=== PATIENT | male | born 1965 | race Caucasian/White ===

== ENCOUNTER → 2017-04-02 | Outpatient (CLI) | payer MEDICARE ==
[~2017-04-02] MED LIST: BACL20TA PO; DIAZ10TA4 PO; HYDR-3144 PO; HYDR25TA6 PO; LISI-170 PO; MORP60TA PO; OXYC20TA2 PO; OXYC30TA PO
== END | disposition home or self-care (01) ==
LOC: RAD 08:17
PROVIDERS: ATTEND Neurological Surgery
DX: M46.1 Sacroiliitis, not elsewhere classified (principal); Z98.1 Arthrodesis status; M41.9 Scoliosis, unspecified
CPT/HCPCS: 72082

== ENCOUNTER → 2017-04-04 | Outpatient (CLI) | payer MEDICARE | END | disposition home or self-care (01) | LOC: CARD 14:04 | PROVIDERS: ATTEND Neurological Surgery | DX: Z01.818 Encounter for other preprocedural examination (principal); R94.31 Abnormal electrocardiogram [ECG] [EKG]; J98.9 Respiratory disorder, unspecified | CPT/HCPCS: 94010; 94726; 94729 ==

== ENCOUNTER → 2017-04-08 | Outpatient (CLI) | payer MEDICARE | LOC: RAD 10:13 | PROVIDERS: ATTEND Neurological Surgery | DX: Z02.9 Encounter for administrative examinations, unspecified (principal) ==

== ENCOUNTER 2017-08-12 14:51 | Emergency (ER) | payer MEDICARE ==
[~2017-08-12] VITALS: Ht 182.9 cm; Wt 85.8 kg
[~2017-08-12 14:51] MED LIST changes: -HYDR-3144 PO; +HYDR-3245 PO
[2017-08-12] MEDS ORDERED: SODIUM CHLORIDE 0.9% 1,000 ML IV ONE (15:04)
[2017-08-12 15:23] LABS: HEMATOCRIT 38.1 % (39.2-51.8); HEMOGLOBIN 12.5 g/dL (13.7-18.0)
[2017-08-12] MEDS ORDERED: ONDANSETRON 2MG/ML, 2ML IVPush ONE (15:30)
[2017-08-12] MEDS ORDERED: SODIUM CHLORIDE 0.9% 1,000ML IVBOLUS ONE (15:30)
[2017-08-12 15:33] LABS: ASPARTATE AMINO TRANSFERASE 14 U/L (15-37); BLOOD UREA NITROGEN 10 mg/dL (7-18)
[2017-08-12] MEDS: MORPHINE SULFATE 4 MG/ML, 1ML IVPush PRN ×2 (16:30→17:36)
[2017-08-12] MEDS ORDERED: OMNIPAQUE 350 MG/ML, 100ML BOTTLE ONE (17:15)
[2017-08-12 18:48] VITALS: BP 124/76
== END 2017-08-12 18:50 | disposition home or self-care (01) ==
LOC: ED 16:02
DX: R10.31 Right lower quadrant pain (principal); I10 Essential (primary) hypertension
CPT/HCPCS: 36415; 74020; 74177; 80053; 81003; 83690; 85025; 96361; 96374; 96375; 96376; 99285; J2405; J7030; Q9967

== ENCOUNTER → 2017-10-14 | Outpatient (CLI) | payer MEDICARE | END | disposition home or self-care (01) | LOC: RAD 13:07 | PROVIDERS: ATTEND Neurological Surgery | DX: M41.9 Scoliosis, unspecified (principal) | CPT/HCPCS: 72082 ==

== ENCOUNTER → 2017-12-02 | Outpatient (CLI) | payer MEDICARE | END | disposition home or self-care (01) | LOC: RAD 15:42 | PROVIDERS: ATTEND Neurological Surgery | DX: M41.84 Other forms of scoliosis, thoracic region (principal) | CPT/HCPCS: 72082 ==

== ENCOUNTER 2018-05-11 21:00 | Emergency (ER) | payer MEDICARE ==
[~2018-05-11] VITALS: Ht 182.9 cm; Wt 90.0 kg
[2018-05-11] MEDS ORDERED: HYDROmorphone 2 MG/ML, 1ML ONE (21:39)
[2018-05-11] MEDS ORDERED: HYDROmorphone 1 MG/ML, 1ML IM ONE ×2 (22:00→22:30)
[2018-05-11] MEDS ORDERED: PLEASE ENTER ALLERGIES MC SCH (22:30)
[2018-05-11 22:38] VITALS: BP 128/74
== END 2018-05-11 22:48 | disposition home or self-care (01) ==
LOC: ED 21:32
DX: S90.32XA Contusion of left foot, initial encounter (principal); G89.11 Acute pain due to trauma; M54.6 Pain in thoracic spine; M54.5 Low back pain; I10 Essential (primary) hypertension; Z79.899 Other long term (current) drug therapy; W13.8XXA Fall from, out of or through other building or structure, initial encounter; Y93.89 Activity, other specified; Y99.8 Other external cause status; Y92.410 Unspecified street and highway as the place of occurrence of the external cause
CPT/HCPCS: 29515; 72080; 73630; 96372; 99284; J1170

== ENCOUNTER → 2018-10-07 | Outpatient (CLI) | payer MEDICARE | END | disposition home or self-care (01) | LOC: RAD 13:14 | PROVIDERS: ATTEND Neurological Surgery | DX: M43.28 Fusion of spine, sacral and sacrococcygeal region (principal); M43.23 Fusion of spine, cervicothoracic region; M41.86 Other forms of scoliosis, lumbar region; M41.84 Other forms of scoliosis, thoracic region | CPT/HCPCS: 72082 ==

== ENCOUNTER → 2018-10-08 | Outpatient (CLI) | payer MEDICARE | END | disposition home or self-care (01) | LOC: RAD 10:04 | PROVIDERS: ATTEND Neurological Surgery | DX: M47.892 Other spondylosis, cervical region (principal); M51.34 Other intervertebral disc degeneration, thoracic region; M51.24 Other intervertebral disc displacement, thoracic region; M43.24 Fusion of spine, thoracic region | CPT/HCPCS: 72141; 72146; 72148 ==

== ENCOUNTER 2018-10-30 21:44 | Emergency (ER) | payer MEDICARE ==
[~2018-10-30] VITALS: Ht 182.9 cm; Wt 95.0 kg
--- NOTE | 2018-10-30 21:53 | NUR ---
Provider to bedside for pt eval upon arrival. Pt comes to ED with main c/o severe back pain. Per EMS pt not taking pain meds and stated to them he thinks he tweeked his back today playing with the dog. Pt reports worse back pain the past few days, from neck to tailbone. Pt reports chronic back pain with multiple back surgeries, pt reports losing bowel and bladder occationally the past few days. Pt states "this happens when the nerve is pinched in my spine." pt also reports chest heaviness and SOB with this heaviness, denies radiating pain. Pt reports has had similar feeling as pt smokes cigarettes. Pt states he was not able to walk a few years ago but with PT he has regained the ability to walk, pt states he has unsteady gait at times r/t "my knees give out on me." pt states last fall last week, denies hitting his head. pt denies being on blood thinners. Pt appears anxious r/t pain to back but able to sit himself up in bed to change into gown. Pt a/ox4, breathing slightly labored, occational wet cough. O2 sat WNL. Pt conversing well, speaking in full sentences without difficulty. Pt able to move all extremities. Pt placed on cardiac and VS monitoring. Pt resting in bed, call light in reach.
[2018-10-30] MEDS ORDERED: SODIUM CHLORIDE FLUSH 10ML SYR IVF ONE (22:00)
--- NOTE | 2018-10-30 22:03 | NUR ---
EKG in progress.
[2018-10-30 22:09] LABS: BASOPHILS # (AUTO) 0.12 x10^3/uL (0-0.1); BASOPHILS % (AUTO) 1 % (0-1); EOSINOPHILS # (AUTO) 0.29 x10^3/uL (0-0.4); EOSINOPHILS % (AUTO) 3 % (1-7); LYMPHOCYTES # (AUTO) 2.91 x10^3/uL (1-3.4); LYMPHOCYTES % (AUTO) 29 % (22-44); MD NO; MEAN CORPUSCULAR HEMOGLOBIN 32.3 pg (27.5-34.5); MEAN CORPUSCULAR HGB CONC 33.7 g/dL (33.2-36.2); MEAN CORPUSCULAR VOLUME 95.9 fL (81-97); MEAN PLATELET VOLUME 7.8 fL (7.4-10.4); MONOCYTES # (AUTO) 0.58 x10^3/uL (0.2-0.8); MONOCYTES % (AUTO) 6 % (2-9); NEUTROPHILS # (AUTO) 6.24 x10^3/uL (1.8-6.8); NEUTROPHILS % (AUTO) 62 % (42-75); PLATELET COUNT 277 x10^3/uL (130-400); RED BLOOD COUNT 5.31 x10^6/uL (4.38-5.82); RED CELL DISTRIBUTION WIDTH 15.2 % (9.4-14.8)
[2018-10-30] MEDS ORDERED: HYDROmorphone 2 MG/ML, 1ML ONE ×2 (22:18→23:51)
[2018-10-30 22:20] LABS: ALBUMIN 3.9 g/dL (3.4-5.0); ANION GAP 10 mmol/L (5-15); CALCIUM 9.5 mg/dL (8.5-10.1); CHLORIDE 107 mmol/L (98-107)
[2018-10-30] MEDS: HYDROmorphone 2 MG/ML, 1ML IVPush PRN ×2 (22:22→23:53)
--- NOTE | 2018-10-30 22:22 | NUR ---
Pt recieved Dilaudid 1mg IV per orders, see emar.
[2018-10-30 22:24] LABS: ALANINE AMINOTRANSFERASE 31 U/L (12-78); ALKALINE PHOSPHATASE 82 U/L (45-117); BILIRUBIN,TOTAL 0.4 mg/dL (0.2-1.0); CREATININE 1.46 mg/dL (0.7-1.3); TOTAL PROTEIN 7.8 g/dL (6.4-8.2); TROPONIN I < 0.015 ng/mL (0.000-0.045)
--- NOTE | 2018-10-30 22:36 | NUR ---
Pt sitting in bed, appears more comfortable. Pt states some relief of back pain. VSS, will continue to monitor.
[2018-10-30] MEDS ORDERED: DIAZEPAM 5 MG TABLET ONE (22:52)
[2018-10-30] MEDS ORDERED: DIAZEPAM 5 MG TABLET PO ONE (23:00)
--- NOTE | 2018-10-30 23:39 | NUR ---
Pt readjusting self in bed for comfort. Pt reports brief relief from pain after pain meds but states pain has returned. VSS, conversing well. breathing E/U. call light.
--- NOTE | 2018-10-30 23:42 | NUR ---
Provider notified of returned pain. awaiting orders.
--- NOTE | 2018-10-30 23:59 | NUR ---
Pt recieved Dilaudid 1mg per orders, see emar. Pt reports improved pain with pain meds. pt awaiting provider update.
[2018-10-31] MEDS ORDERED: HYDROmorphone 1 MG/ML, 1ML IV ONE
--- NOTE | 2018-10-31 00:20 | NUR ---
Provider to bedside for pt update.
[2018-10-31 00:43] VITALS: BP 134/78
== END 2018-10-31 00:45 | disposition home or self-care (01) ==
LOC: ED 22:16
DX: G89.29 Other chronic pain (principal); M54.2 Cervicalgia; M54.6 Pain in thoracic spine; M54.5 Low back pain
CPT/HCPCS: 36415; 80053; 84484; 85025; 93005; 96374; 96376; 99284; J1170

== ENCOUNTER 2020-04-26 21:09 | Emergency (ER) | payer MEDICARE ==
[~2020-04-26] VITALS: Ht 180.3 cm; Wt 90.0 kg
[~2020-04-26 21:09] MED LIST changes: -MORP60TA PO; +MORP60TA63 PO; -OXYC30TA PO; +OXYC30TA3 PO
[2020-04-26] MEDS ORDERED: HYDROmorphone 1 MG/ML, 1ML INJ IVPush PRN (21:30)
[2020-04-26] MEDS ORDERED: PLEASE ENTER ALLERGIES MC SCH (21:30)
[2020-04-26] MEDS ORDERED: ONDANSETRON 2MG/ML, 2ML IVPush ONE (21:30)
[2020-04-26 21:41] LABS: BASOPHILS # (AUTO) 0.08 x10^3/uL (0-0.1); BASOPHILS % (AUTO) 1 % (0-1); EOSINOPHILS # (AUTO) 0.39 x10^3/uL (0-0.4); EOSINOPHILS % (AUTO) 5 % (1-7); LYMPHOCYTES # (AUTO) 3.29 x10^3/uL (1-3.4); LYMPHOCYTES % (AUTO) 45 % (22-44); MD NO; MEAN CORPUSCULAR HEMOGLOBIN 32.5 pg (27.5-34.5); MEAN CORPUSCULAR HGB CONC 33.4 g/dL (33.2-36.2); MEAN CORPUSCULAR VOLUME 97.3 fL (81-97); MEAN PLATELET VOLUME 8.1 fL (7.4-10.4); MONOCYTES # (AUTO) 0.67 x10^3/uL (0.2-0.8); MONOCYTES % (AUTO) 9 % (2-9); NEUTROPHILS # (AUTO) 2.89 x10^3/uL (1.8-6.8); NEUTROPHILS % (AUTO) 40 % (42-75); PLATELET COUNT 214 x10^3/uL (130-400); RED BLOOD COUNT 5.12 x10^6/uL (4.38-5.82); RED CELL DISTRIBUTION WIDTH 15.1 % (9.4-14.8)
[2020-04-26] MEDS ORDERED: HYDROmorphone 1 MG/ML, 1ML INJ ONE (21:48)
[2020-04-26 21:49] LABS: ANION GAP 9 mmol/L (5-15); CALCIUM 8.7 mg/dL (8.5-10.1); CHLORIDE 111 mmol/L (98-107); CREATININE 1.01 mg/dL (0.7-1.3)
--- NOTE | 2020-04-26 22:04 | NUR ---
PT TO MRI. MRI CALLED FOR BACKUP, STATES PT IS REQUESTING MEDICATION. WHEN THIS RN ARRIVED ON SCENE, PT WAS VERBALLY SCREAMING AT THE GEODESIST, CURSING, AND UNABLE TO BE DEESCALATED. PT SCREAMING "I'M GONNA UNA THIS HOSPITAL! I NEED TO FILE A POLICE REPORT, GET ME OUTTA HERE, I'M GOING TO [place]!" PT OFFERED IV AND MEDICATION PER MAR, BECAME VERBALLY AGGRESSIVE WITH THIS NURSE AND CONTINUED TO REFUSE TREATMENT. PT BEGAN TO SIT UP OFF OF THE MRI TABLE, SCREAMING AT STAFF TO FETCH HIS WHEELCHAIR, WHICH DID NOT COME INTO THE HOSPITAL WITH HIM. PT STATES "I'M ALL ABOUT RESPECT, BUT THAT BITCH, I'LL KILL HER!" REFERRING TO GEODESIST. SECURITY AND CODE THEO CALLED. ERP AT BEDSIDE. PT STILL REFUSING MEDICATIONS. PT TRANSFERRED WITH STAFF ASSISTANCE FROM MRI TABLE TO [facility] AND RETURNED TO ROOM.
[2020-04-26] MEDS ORDERED: DIAZEPAM 5 MG/ML, 2ML ONE ×2 (22:09→22:47)
[2020-04-26] MEDS ORDERED: DIAZEPAM 5 MG/ML, 10ML VIAL IV ONE (22:30)
[2020-04-26] MEDS ORDERED: DIAZEPAM 5 MG/ML, 2ML IV ONE (23:00)
--- NOTE | 2020-04-26 23:02 | NUR ---
PT TO MRI AFTER BEING MEDICATED.
--- NOTE | 2020-04-26 23:38 | NUR ---
Late Entry: Pt taken to MRI for a second time after medciating with 5mg valium via IV. Pt reports feeling more calm and willing to cooperate. Apology offered for miscommunication to patient and pt receptive. Pt informed that this RN is unable to stay in MRI with patient as MRI exam takes 1 hour and pt aggreable to this RN leaving. Pt also Informed he will remain with Hemalatha the voip network technician who he had a disagreement with. Pt upon transfer to MRI table was aggreable and calm. Pt easily transfered and placed on spo2 monitor for safety.
--- NOTE | 2020-04-27 00:46 | NUR ---
Report received from BALDEV Bravo. This RN to assume care. Patient up for discharge.
[2020-04-27 01:10] VITALS: BP 104/63
--- NOTE | 2020-04-27 01:11 | NUR ---
Discharge instructions given. All questions and concerns addressed. Patient assisted out in his personal wheelchair. Belongings with patient.
== END 2020-04-27 01:14 | disposition home or self-care (01) ==
LOC: ED 04-27 01:06
DX: G89.11 Acute pain due to trauma (principal); M54.6 Pain in thoracic spine; M54.5 Low back pain; R53.1 Weakness; R20.0 Anesthesia of skin; I21.9 Acute myocardial infarction, unspecified; I10 Essential (primary) hypertension; F17.210 Nicotine dependence, cigarettes, uncomplicated
CPT/HCPCS: 36415; 72146; 80048; 82040; 85025; 93005; 99285; 99406; J3360

== ENCOUNTER → 2020-05-04 | Outpatient (CLI) | payer MEDICARE ==
[~2020-05-04] MED LIST changes: +OMNIPAQUE 350 MG/ML, 100ML BOTTLE ONE
== END | disposition home or self-care (01) ==
LOC: CFH 07:11
PROVIDERS: ATTEND Neurological Surgery
DX: M50.20 Other cervical disc displacement, unspecified cervical region (principal); M51.24 Other intervertebral disc displacement, thoracic region; M50.30 Other cervical disc degeneration, unspecified cervical region; M51.34 Other intervertebral disc degeneration, thoracic region; M40.294 Other kyphosis, thoracic region; M25.78 Osteophyte, vertebrae
CPT/HCPCS: 72040; 72072; 72100; 72141; 72146; 72148; 74177; Q9967

== ENCOUNTER → 2020-06-03 | Outpatient (CLI) | payer MEDICARE ==
[~2020-06-03] MED LIST changes: -OMNIPAQUE 350 MG/ML, 100ML BOTTLE ONE
== END | disposition home or self-care (01) ==
LOC: RAD 11:01
PROVIDERS: ATTEND Physician Assistant
DX: M41.84 Other forms of scoliosis, thoracic region (principal); M47.814 Spondylosis without myelopathy or radiculopathy, thoracic region; Q76 Congenital malformations of spine and bony thorax; R19.07 Generalized intra-abdominal and pelvic swelling, mass and lump; M48.04 Spinal stenosis, thoracic region
CPT/HCPCS: 72072; 72082; 72110